=== PATIENT | male | born 1950 | race Caucasian/White ===

== ENCOUNTER → 2018-02-24 13:00 | Outpatient (CLI) | payer OTHER, SELFPAY | PROVIDERS: PCP Family Medicine | DX: Z23 Encounter for immunization (principal) | CPT/HCPCS: 90471; 90662 ==

== ENCOUNTER → 2018-04-15 09:26 | Outpatient (CLI) | payer OTHER, SELFPAY | PROVIDERS: PCP Family Medicine; Visit Provider Family Medicine | DX: N20.0 Calculus of kidney (principal); R31.29 Other microscopic hematuria | CPT/HCPCS: 87086 ==

== ENCOUNTER → 2018-04-15 09:35 | Outpatient (CLI) | payer OTHER, SELFPAY ==
[2018-04-15 10:28] LABS: Add Manual Diff / Slide Review NO; Basophils Percent Auto 0.9 % (0-2); Eosinophils Percent Auto 0.8 % (2-4); Hematocrit 47.8 % (41-53); Hemoglobin 15.8 g/dL (13.5-17.5); Lymphocytes Percent Auto 7.3 % (25-40); Mean Corpuscular Hemoglobin 30.7 PG (26-34); Mean Corpuscular Volume 92.9 fL (80-100); Neutrophils Absolute Auto 14300 /uL (3000-5900); Platelet Count 353 X10^3/uL (150-400); Red Blood Cell Count 5.15 X10^6/uL (4.5-5.9); Red Cell Distribution Width 13.4 % (11.6-14.8); White Blood Cell Count 16.8 X10^3/uL (4.5-11.0)
[2018-04-15 10:35] LABS: Hemoglobin A1C% w Est Avg Glu 7.1 % (4.0-6.0)
[2018-04-15 10:54] LABS: Alanine Aminotransferase 26 IU/L (21-72); Albumin 4.6 g/dL (3.5-5.0); Albumin Globulin Ratio 1.3 (1.0-2.8); Alkaline Phosphatase 80 U/L (38-126); Aspartate Aminotransferase 24 IU/L (17-59); BUN Creatinine Ratio 18.7 (6-22); Bilirubin Total 0.3 mg/dL (0.2-1.3); Blood Urea Nitrogen 28 mg/dL (9-20); Calcium 10.2 mg/dL (8.4-10.2); Carbon Dioxide 24 mmol/L (22-32); Chloride 104 mmol/L (98-107); Cholesterol 242 mg/dL (140-199); Estimated Glomerular Filt Rate 46.8 mL/min (>60); Globulin 3.6 g/dL (1.7-4.1); Glucose 126 mg/dL (80-110); HDL Cholesterol 54 mg/dL (40-60); HEMOLYSIS < 15 (0-50); LDL Cholesterol Calculated 159 mg/dL (<100); Sodium 145 mmol/L (137-145); Total Protein 8.2 g/dL (6.3-8.2); Triglycerides 145 mg/dL (35-150)
== END ==
PROVIDERS: PCP Family Medicine; Visit Provider Family Medicine
DX: E11.9 Type 2 diabetes mellitus without complications (principal); N20.0 Calculus of kidney; Z12.5 Encounter for screening for malignant neoplasm of prostate; R31.29 Other microscopic hematuria
CPT/HCPCS: 36415; 80053; 80061; 83036; 85025; 87086; G0103

== ENCOUNTER → 2018-04-16 10:19 | Outpatient (CLI) | payer OTHER, SELFPAY ==
--- NOTE | 2018-04-16 | DI.CT.S_ITS ---
PROCEDURE: CT KIDNEY URETER BLADDER (KUB) INDICATIONS: CALCULUS OF KIDNEY TECHNIQUE: Noncontrast 5 mm thick sections acquired from the diaphragms to the symphysis. 5 mm thick coronal and sagittal reformats were then performed. For radiation dose reduction, the following was used: automated exposure control, adjustment of mA and/or kV according to patient size. COMPARISON: [facility], CT, KIDNEY/ URETER/BLADDER, 07/28/2014, 8:34. FINDINGS: Image quality: Motion is present limiting areas of fine detail evaluation. Lung bases: Lung bases are clear. Heart size is normal. Urinary system: Right kidney demonstrates no nephrolithiasis. No obstruction. Right ureter is unremarkable. The left kidney demonstrates an unchanged superior left renal pole exophytic cyst. There are two inferior pole calcifications, the largest measuring 3 mm, slightly increased from prior exam, at which time it measured 1-2 mm. There is left perinephric stranding as well as mild left hydronephrosis and hydroureter. There is a 5 mm calcification at the left ureterovesicular junction, Hounsfield units 439. In addition, an irregular calcification is present within the bladder lumen measuring 16 mm AP by 14 mm transverse, new compared to prior exam. There is minimal periureteral stranding at the level of the proximal and mid ureter. Other solid organs: Liver is normal in size. It is noted that the hepatic dome is not completely included within the [id number]. Hepatic steatosis is present. There is an unchanged appearance of hepatic cysts. Gallbladder continues to demonstrate multiple luminal stones without wall thickening. Pancreas is normal in contours. Spleen is normal in size. No adrenal nodules. Peritoneum and bowel: Unenhanced bowel loops demonstrate normal wall thickness and caliber. No free fluid or air. Hiatal hernia is present. Diverticulosis. Nodes and vessels: No retroperitoneal or mesenteric adenopathy by size criteria. Aorta and inferior vena cava are normal in caliber. Abdominal wall: No ventral hernias. Pelvis: No free pelvic fluid. No inguinal hernias or adenopathy. Bones: No suspicious bony lesions. No vertebral body compression fractures. IMPRESSION: 1. Mildly obstructing distal left ureterovesicular calculus as above. There is periureteral stranding which could represent inflammation versus small areas of fluid possibly secondary to urine from ureteral injury secondary to recent stone passage. Recommend clinical and imaging followup as appropriate. 2. Unchanged cholelithiasis. 3. New bladder calcification. This could represent recently passed stones. However, other etiologies such as calcified mass cannot be excluded and recommend further evaluation with urology as indicated. 4. Diverticulosis. Dictated by: Karen King M.D. on 04/16/2018 at 16:43 Approved by: Karen King M.D. on 04/16/2018 at 16:48
== END ==
PROVIDERS: PCP Family Medicine; Visit Provider Family Medicine
DX: N20.0 Calculus of kidney (principal); K80.80 Other cholelithiasis without obstruction; N32.89 Other specified disorders of bladder; K57.90 Diverticulosis of intestine, part unspecified, without perforation or abscess without bleeding
CPT/HCPCS: 74176

== ENCOUNTER → 2018-05-06 09:34 | Outpatient (CLI) | payer OTHER, SELFPAY ==
[2018-05-06 10:24] LABS: Alanine Aminotransferase 23 IU/L (21-72); Albumin 4.5 g/dL (3.5-5.0); Albumin Globulin Ratio 1.4 (1.0-2.8); Alkaline Phosphatase 75 U/L (38-126); Aspartate Aminotransferase 19 IU/L (17-59); BUN Creatinine Ratio 26.4 (6-22); Bilirubin Total 0.4 mg/dL (0.2-1.3); Blood Urea Nitrogen 29 mg/dL (9-20); Calcium 9.9 mg/dL (8.4-10.2); Carbon Dioxide 29 mmol/L (22-32); Chloride 104 mmol/L (98-107); Estimated Glomerular Filt Rate > 60.0 mL/min (>60); Globulin 3.3 g/dL (1.7-4.1); Glucose 110 mg/dL (80-110); HEMOLYSIS < 15 (0-50); Potassium 4.7 mmol/L (3.4-5.1); Sodium 146 mmol/L (137-145); Total Protein 7.8 g/dL (6.3-8.2)
[2018-05-06 10:59] LABS: Creatinine Urine Random 95.5 mg/dL
[2018-05-06 11:04] LABS: Microalbumi Creatinin Ratio Ur 16.7 ug/mg CR (<30); Microalbumin Urine Random 1.6 mg/dL (0-1.6)
== END ==
PROVIDERS: PCP Student in an Organized Health Care Education/Training Program; Visit Provider Student in an Organized Health Care Education/Training Program
DX: E55.9 Vitamin D deficiency, unspecified (principal); E11.9 Type 2 diabetes mellitus without complications; Z79.899 Other long term (current) drug therapy
CPT/HCPCS: 36415; 80053; 82043; 82306; 82570

== ENCOUNTER → 2019-01-01 07:49 | Outpatient (CLI) | payer OTHER, SELFPAY ==
[2019-01-01 08:33] LABS: Hemoglobin A1C% w Est Avg Glu 6.8 % (4.0-6.0)
[2019-01-01 08:40] LABS: Alanine Aminotransferase 18 IU/L (21-72); Albumin 4.5 g/dL (3.5-5.0); Albumin Globulin Ratio 1.6 (1.0-2.8); Alkaline Phosphatase 72 U/L (38-126); Aspartate Aminotransferase 15 IU/L (17-59); Bilirubin Total 0.4 mg/dL (0.2-1.3); Bilirubin Unconjugated 0.1 mg/dL (0.0-1.1); Cholesterol 126 mg/dL (140-199); Globulin 2.9 g/dL (1.7-4.1); HDL Cholesterol 44 mg/dL (40-60); HEMOLYSIS < 15 (0-50); LDL Cholesterol Calculated 61 mg/dL (<100); Total Protein 7.4 g/dL (6.3-8.2); Triglycerides 107 mg/dL (35-150)
== END ==
PROVIDERS: PCP Student in an Organized Health Care Education/Training Program; Visit Provider Student in an Organized Health Care Education/Training Program
DX: E78.2 Mixed hyperlipidemia (principal); Z79.899 Other long term (current) drug therapy; E11.9 Type 2 diabetes mellitus without complications
CPT/HCPCS: 36415; 80061; 80076; 83036

== ENCOUNTER → 2019-03-04 12:44 | Outpatient (CLI) | payer OTHER, SELFPAY | DX: Z23 Encounter for immunization (principal) | CPT/HCPCS: 90471; 90662 ==

== ENCOUNTER → 2019-04-12 16:14 | Outpatient (CLI) | payer OTHER, SELFPAY ==
[2019-04-12 16:42] LABS: Hemoglobin A1C% w Est Avg Glu 6.5 % (4.0-6.0)
== END ==
PROVIDERS: PCP Student in an Organized Health Care Education/Training Program; Visit Provider Student in an Organized Health Care Education/Training Program
DX: E11.9 Type 2 diabetes mellitus without complications (principal)
CPT/HCPCS: 36415; 83036

== ENCOUNTER → 2019-10-28 08:16 | Outpatient (CLI) | payer MEDICARE, SELFPAY ==
[2019-10-28 09:10] LABS: Creatinine Urine Random 158.6 mg/dL; Hemoglobin A1C% w Est Avg Glu 6.9 % (4.0-6.0)
[2019-10-28 09:14] LABS: BUN Creatinine Ratio 18.5 (6-22); Blood Urea Nitrogen 22 mg/dL (9-20); Calcium 10.3 mg/dL (8.4-10.2); Carbon Dioxide 27 mmol/L (22-32); Chloride 103 mmol/L (98-107); Estimated Glomerular Filt Rate > 60.0 mL/min (>60); Glucose 131 mg/dL (80-110); HEMOLYSIS < 15 (0-50); Potassium 5.1 mmol/L (3.4-5.1); Sodium 139 mmol/L (137-145)
[2019-10-28 09:15] LABS: Microalbumin Urine Random 0.8 mg/dL (0-1.6)
== END ==
PROVIDERS: PCP Student in an Organized Health Care Education/Training Program; Referring Provider Student in an Organized Health Care Education/Training Program; Visit Provider Student in an Organized Health Care Education/Training Program
DX: E11.9 Type 2 diabetes mellitus without complications (principal); I10 Essential (primary) hypertension
CPT/HCPCS: 36415; 80048; 82043; 82570; 83036

== ENCOUNTER 2020-02-13 06:43 | Emergency (ER) | payer MEDICARE, SELFPAY ==
[2020-02-13 06:55] VITALS: BP 146/66; PULSE 62; RESP 17; TEMP 36.6; O2SAT 98; BMI 37.1
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
--- NOTE | 2020-02-13 08:01 | PC.NURSE ---
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
[2020-02-13 08:27] VITALS: BP 135/62; PULSE 60; O2SAT 98
== END 2020-02-13 08:29 | disposition home or self-care (01) ==
PROVIDERS: Emergency Provider Emergency Medicine; PCP Student in an Organized Health Care Education/Training Program
DX: M54.6 Pain in thoracic spine (principal); X58.XXXA Exposure to other specified factors, initial encounter; Y92.814 Boat as the place of occurrence of the external cause; Y99.0 Civilian activity done for income or pay
CPT/HCPCS: 72072; 99281; 99283

== ENCOUNTER → 2020-03-21 07:50 | Outpatient (CLI) | payer MEDICARE, SELFPAY | PROVIDERS: PCP Student in an Organized Health Care Education/Training Program; Referring Provider Internal Medicine; Visit Provider Internal Medicine | DX: Z23 Encounter for immunization (principal) | CPT/HCPCS: 90471; 90662 ==

== ENCOUNTER → 2020-04-18 10:34 | Outpatient (CLI) | payer MEDICARE, SELFPAY ==
[2020-04-18 11:21] LABS: COVID19 -Nasal RAPID Negative (Negative)
== END ==
PROVIDERS: PCP Student in an Organized Health Care Education/Training Program; Visit Provider Student in an Organized Health Care Education/Training Program
DX: Z03.818 Encounter for observation for suspected exposure to other biological agents ruled out (principal); Z11.59 Encounter for screening for other viral diseases
CPT/HCPCS: 87635

== ENCOUNTER → 2020-05-02 15:00 | Outpatient (CLI) | payer MEDICARE, SELFPAY ==
[2020-05-02 16:32] LABS: Prostate Specific Antigen Scrn 1.84 ng/mL (0.1-4.0)
== END ==
PROVIDERS: PCP Student in an Organized Health Care Education/Training Program; Referring Provider Student in an Organized Health Care Education/Training Program; Visit Provider Student in an Organized Health Care Education/Training Program
DX: E11.9 Type 2 diabetes mellitus without complications (principal); Z12.5 Encounter for screening for malignant neoplasm of prostate
CPT/HCPCS: 36415; 83036; G0103

== ENCOUNTER → 2020-11-13 08:45 | Outpatient (CLI) | payer MEDICARE, SELFPAY ==
[2020-11-13 10:04] LABS: Hemoglobin A1C% w Est Avg Glu 7.4 % (4.0-6.0)
== END ==
PROVIDERS: PCP Student in an Organized Health Care Education/Training Program; Referring Provider Student in an Organized Health Care Education/Training Program; Visit Provider Student in an Organized Health Care Education/Training Program
DX: E11.9 Type 2 diabetes mellitus without complications (principal)
CPT/HCPCS: 36415; 83036

== ENCOUNTER → 2021-05-23 13:04 | Outpatient (CLI) | payer MEDICARE, SELFPAY ==
[2021-05-23 14:04] LABS: Hemoglobin A1C% w Est Avg Glu 7.8 % (4.0-6.0)
[2021-05-23 17:30] LABS: Creatinine Urine Random 152.7 mg/dL
[2021-05-23 17:33] LABS: Microalbumi Creatinin Ratio Ur 16.3 ug/mg CR (<30); Microalbumin Urine Random 2.5 mg/dL (0-1.6)
== END ==
PROVIDERS: PCP Student in an Organized Health Care Education/Training Program; Referring Provider Student in an Organized Health Care Education/Training Program; Visit Provider Student in an Organized Health Care Education/Training Program
DX: E11.9 Type 2 diabetes mellitus without complications (principal); I10 Essential (primary) hypertension
CPT/HCPCS: 36415; 82043; 82570; 83036

== ENCOUNTER → 2021-08-03 12:52 | Outpatient (CLI) | payer MEDICARE, SELFPAY ==
[2021-08-03 14:18] LABS: Prostate Specific Antigen 2.05 ng/mL (0.10-4.00)
== END ==
PROVIDERS: PCP Student in an Organized Health Care Education/Training Program; Referring Provider Urology; Visit Provider Urology
DX: Z12.5 Encounter for screening for malignant neoplasm of prostate (principal)
CPT/HCPCS: 36415; 84153

== ENCOUNTER → 2021-10-04 08:07 | Outpatient (CLI) | payer MEDICARE, SELFPAY ==
--- NOTE | 2021-10-04 08:08 | DI.MRI.S_ITS ---
PROCEDURE: MR THORACIC SPINE WO CON INDICATIONS: Pain in thoracic spine TECHNIQUE: Noncontrast sagittal T1 spine echo and T2 fast spin echo, sagittal STIR, axial T1 and T2 fast spin echo through the thoracic spine. COMPARISON: [facility], XR THORACIC SPINE 3V, 02/13/2020, 7:11. FINDINGS: Image quality: Excellent. Alignment and Curvature: There is normal bony alignment. Bone Marrow: Marrow is of normal overall signal. No acute vertebral body compression fractures. Spinal Cord: Visualized spinal cord is normal in size and signal. Paraspinous Soft Tissues: No paravertebral masses. Partially visualized simple renal cysts are noted. Miscellaneous: On axial images, central canal and foramina appear widely patent at all scanned levels. Scattered multilevel minimal to mild disc bulges. Multilevel zytw-pn-[id number] disc desiccation is present. Moderate bilateral foraminal narrowing is present at T7-8, T9-10, T10-11 moderate to severe left and moderate right T11-12, moderate left T12-L1. [id number] bilateral T8-9. IMPRESSION: Multilevel disc bulges as well as foraminal narrowing as detailed above. Dictated by: Karen King M.D. on 10/04/2021 at 11:42 Approved by: Karen King M.D. on 10/04/2021 at 11:47
== END ==
PROVIDERS: PCP Student in an Organized Health Care Education/Training Program; Referring Provider Student in an Organized Health Care Education/Training Program; Visit Provider Student in an Organized Health Care Education/Training Program
DX: M51.14 Intervertebral disc disorders with radiculopathy, thoracic region (principal); M48.04 Spinal stenosis, thoracic region
CPT/HCPCS: 72146

== ENCOUNTER → 2021-10-31 08:23 | Outpatient (CLI) | payer MEDICARE, SELFPAY ==
--- NOTE | 2021-10-31 08:25 | DI.RAD.S_ITS ---
PROCEDURE: XR THORACIC SPINE 3V INDICATIONS: rib pain TECHNIQUE: 3 views of the thoracic spine were acquired. COMPARISON: [facility], CR, XR THORACIC SPINE 3V, 02/13/2020, 7:11. FINDINGS: Bones: No acute fracture or dislocation. There is 19? dextroscoliosis at the thoracolumbar junction. There are 12 pairs of ribs. There is diffuse intervertebral disc space narrowing, endplate sclerosis, and osteophytosis throughout the lumbar spine. No compression deformities. Soft tissues: No paravertebral stripe thickening. Lung volumes are low. IMPRESSION: Dextroscoliosis. Moderate degenerative change. Dictated by: Noemi Welsh M.D. on 10/31/2021 at 9:20 Approved by: Noemi Welsh M.D. on 10/31/2021 at 9:22
== END ==
PROVIDERS: PCP Student in an Organized Health Care Education/Training Program; Referring Provider Physical Medicine & Rehabilitation; Visit Provider Physical Medicine & Rehabilitation
DX: M47.24 Other spondylosis with radiculopathy, thoracic region (principal); M41.85 Other forms of scoliosis, thoracolumbar region; M54.6 Pain in thoracic spine; G89.29 Other chronic pain
CPT/HCPCS: 72072

== ENCOUNTER → 2021-12-11 13:19 | Outpatient (CLI) | payer MEDICARE, SELFPAY ==
--- NOTE | 2021-12-11 13:22 | DI.RAD.S_ITS ---
PROCEDURE: XR LUMBAR SPINE MIN 4V INDICATIONS: Chronic progressive low back pain right lower extremity symp TECHNIQUE: 5 views of the lumbar spine were acquired, including bilateral oblique views. COMPARISON: [facility], , L-SPINE 2-3 VIEWS, 08/08/2014, 10:32. FINDINGS: Bones: 5 nonrib-bearing vertebrae are present. There is normal bony alignment. Old compressions of L1 and L5, unchanged. Dextro curvature centered at L1. Lower lumbar facet arthropathy. No suspicious bony lesions. Soft tissues: Overlying bowel gas pattern is normal. No suspicious soft tissue calcifications. Oblique images: No pars defects. IMPRESSION: 1. Old compression fractures. 2. Degenerative change. 3. No evidence acute bony abnormality of the lumbar spine. Dictated by: Jefferson Grady M.D. on 12/11/2021 at 16:43 Approved by: Jefferson Grady M.D. on 12/11/2021 at 16:46
--- NOTE | 2021-12-11 13:22 | DI.RAD.S_ITS ---
PROCEDURE: XR SACRUM COCCYX MIN 2V INDICATIONS: coccyx pain TECHNIQUE: 3 views of the sacrum and coccyx acquired. COMPARISON: [facility], CT, CT KIDNEY URETER BLADDER (KUB), 04/16/2018, 10:20. FINDINGS: Bones: No fractures or dislocations. No suspicious bony lesions. Soft tissues: Visualized bowel gas pattern is normal. No suspicious soft tissue densities. IMPRESSION: No evidence acute bony abnormality of the sacrum and coccyx. If clinical suspicion and/or symptoms persist, further assessment with repeat plain films, or advanced imaging (e.g., CT, MRI, or bone scan) may be helpful for further assessment. Dictated by: Jefferson Grady M.D. on 12/11/2021 at 16:48 Approved by: Jefferson Grady M.D. on 12/11/2021 at 16:49
--- NOTE | 2021-12-11 13:22 | DI.MRI.S_ITS ---
PROCEDURE: MR LUMBAR SPINE WO CON INDICATIONS: Low back pain requiring pain TECHNIQUE: Noncontrast sagittal T1 spin echo and T2 fast echo, sagittal STIR, and T2 fast spin echo through the lumbar spine. In cases with scoliosis, additional coronal T2 fast spin echo may be performed. COMPARISON: [facility], CR, L-SPINE 2-3 VIEWS, 08/08/2014, 10:32. [facility], CR, XR LUMBAR SPINE MIN 4V, 12/11/2021, 13:15. [facility], MR, L-SPINE WITHOUT CONTRAST, 09/05/2014, 7:33. FINDINGS: Image quality: Excellent. Alignment and Curvature: There is normal bony alignment. Bone Marrow: Marrow is of normal overall signal. No acute vertebral body compression fractures. Old L1 and L5 compressions. Spinal Cord: Conus medullaris terminates at the L1-L2 level. Visualized cord demonstrates normal signal and size. Paraspinous Soft Tissues: No paravertebral masses. T12-L1: Mild facet hypertrophy, left greater than right. Left posterior lateral disc bulge. Mild narrowing of the left side of the canal. L1-L2: No canal stenosis or foraminal stenosis. L2-L3: No canal stenosis or foraminal stenosis. L3-L4: Bilateral facet hypertrophy. No significant canal stenosis. Mild bilateral foraminal stenosis. L4-L5: Disc bulge. Facet hypertrophy. No canal stenosis. Mild bilateral foraminal stenosis. L5-S1: There is disc bulge and facet hypertrophy. Quite prominent epidural lipomatosis results in severe canal stenosis. IMPRESSION: 1. Multilevel facet arthropathy. 2. Epidural lipomatosis at L5-S1 results in severe canal stenosis. 3. As before, stenosis of the left side of the canal at T12-L1. Dictated by: Jefferson Grady M.D. on 12/11/2021 at 15:43 Approved by: Jefferson Grady M.D. on 12/11/2021 at 15:49
== END ==
PROVIDERS: PCP Student in an Organized Health Care Education/Training Program; Referring Provider Physical Medicine & Rehabilitation; Visit Provider Physical Medicine & Rehabilitation
DX: M54.16 Radiculopathy, lumbar region (principal); M53.3 Sacrococcygeal disorders, not elsewhere classified; M47.816 Spondylosis without myelopathy or radiculopathy, lumbar region; E88.2 Lipomatosis, not elsewhere classified; M48.05 Spinal stenosis, thoracolumbar region; M48.56XA Collapsed vertebra, not elsewhere classified, lumbar region, initial encounter for fracture
CPT/HCPCS: 72110; 72148; 72220

== ENCOUNTER → 2021-12-19 09:23 | Outpatient (CLI) | payer MEDICARE, SELFPAY ==
[2021-12-19 11:23] LABS: HEMOLYSIS < 15 (0-50)
[2021-12-19 11:29] LABS: Blood Urea Nitrogen 37 mg/dL (9-20); Calcium 9.4 mg/dL (8.4-10.2); Carbon Dioxide 22 mmol/L (22-32); Chloride 108 mmol/L (98-107); Cholesterol 160 mg/dL (140-199); Estimated Glomerular Filt Rate 58 mL/min (>60); Glucose 103 mg/dL (80-110); HDL Cholesterol 47 mg/dL (40-60); LDL Cholesterol Calculated 98 mg/dL (<100); Potassium 5.5 mmol/L (3.4-5.1); Sodium 140 mmol/L (137-145); Triglycerides 77 mg/dL (35-150)
[2021-12-19 11:34] LABS: Creatinine Urine Random 177.7 mg/dL
[2021-12-19 11:35] LABS: Microalbumi Creatinin Ratio Ur 10.6 ug/mg CR (<30); Microalbumin Urine Random 1.9 mg/dL (0-1.6)
[2021-12-20] LABS: Prostate Specific Antigen Scrn 1.79 ng/mL (0.1-4.0)
[2021-12-20 04:41] LABS: Hemoglobin A1C% w Est Avg Glu 6.3 % (4.0-6.0)
== END ==
PROVIDERS: PCP Student in an Organized Health Care Education/Training Program; Referring Provider Student in an Organized Health Care Education/Training Program; Visit Provider Student in an Organized Health Care Education/Training Program
DX: E11.9 Type 2 diabetes mellitus without complications (principal); Z12.5 Encounter for screening for malignant neoplasm of prostate; E78.2 Mixed hyperlipidemia; I10 Essential (primary) hypertension
CPT/HCPCS: 36415; 80048; 80061; 82043; 82570; 83036; G0103

== ENCOUNTER → 2022-01-14 10:25 | Outpatient (CLI) | payer MEDICARE, SELFPAY ==
[2022-01-14 13:19] LABS: COVID19 -Nasal RAPID Negative (Negative)
== END ==
PROVIDERS: PCP Student in an Organized Health Care Education/Training Program; Visit Provider Physical Medicine & Rehabilitation
DX: Z20.822 Contact with and (suspected) exposure to COVID-19 (principal)
CPT/HCPCS: 87635; C9803

== ENCOUNTER 2022-01-15 13:33 | Outpatient (CLI) | payer MEDICARE, SELFPAY ==
[2022-01-15] VITALS (8 sets, daily range): BP systolic 110–155; BP diastolic 53–111; PULSE 80–95; RESP 12–20; TEMP 36.2; O2SAT 95–98
--- NOTE | 2022-01-15 13:37 | DI.RAD.S_ITS ---
PROCEDURE: PAIN L/S TRANSFORAMINAL INJECT INDICATIONS: SPONDYLOSIS COMPARISON: [facility], MR, MR LUMBAR SPINE WO CON, 12/11/2021, 14:10. FINDINGS: Fluoroscopic spot filming was performed to verify placement of a spinal needle at the L5-S1 level, as labeled on the films. Appropriate location of the needle tip was confirmed by injection of iodinated contrast. IMPRESSION: No significant intraprocedural abnormality. Dictated by: Randy Camarena M.D. on 01/15/2022 at 14:17 Approved by: Randy Camarena M.D. on 01/15/2022 at 14:17
[2022-01-15] MEDS: MIDAZOLAM 2 MG/2 ML VIAL IV (14:28)
[2022-01-15] MEDS: BUPIVACAINE 0.25% (PF) VIAL 2 ML INJ (14:33)
[2022-01-15] MEDS: IOPAMIDOL 15 ML VIAL 3 ML INJ (14:33)
[2022-01-15] MEDS: DEXAMETHASONE 10 MG/ML VIAL 20 MG INJ (14:34)
[2022-01-15] MEDS: BETAMETHASONE 30 MG/5 ML MDV 6 MG INJ (14:34)
--- NOTE | 2022-01-15 14:41 | P.PCN_ITS ---
Date/Time/Diagnoses Date of procedure: 01/15/22 Time of procedure: 14:42 Pre-procedure diagnosis: FORAMINAL STENOSIS WITH LE SYMPTOMS Post-procedure diagnosis: same Procedure Notes Procedure: 1. FLUOROSCOPICALLY GUIDED CONTRAST CONTROLLED TRANSFORAMINAL EPIDURAL STEROID INJECTION - RIGHT L5/S1 TFESI Indications: Amador is referred by Dr. Wilkerson for treatment of Foraminal Stenosis with Right LE Symptoms Physician: Darek Medrano Total Fluoroscopy time (seconds): 10 Total sedation minutes: 11 Complications: none Procedure in detail & Post-procedure care: FINDINGS Foraminal Nerve Root Compression secondary to disc disease and facet hypertrophy DESCRIPTION OF PROCEDURE Following review of allergy and review of potential side effects and complications, including, but not necessarily limited to, infection, allergic r eaction, local tissue breakdown, stroke, temporary or permanent nerve injury, paralysis, and possible , the patient indicated that the patient understood and agreed to proceed. An informed consent document was signed by the patient, witnessed by a nurse, and placed in the patient's chart. Additionally, other treatment options including medications, modalities, and physical therapy were reviewed with the patient. After review of previous anaesthesic history and IV conscious sedation the patient was deemed safe to proceed with today?s procedure with IV conscious sedation as ASA class II designation. Safety time-out was performed to confirm patient ID, procedure to be performed and site of procedure. IV sedation was accomplished with a combination of 2mg of Versed was administered by the RN after DO order, titrated to patient comfort during the course of the procedure while the patient remained responsive to all verbal commands In the prone position following sterile prep and drape of the lumbar region, the right L5/S1 posterior neuroforamen was identified fluoroscopically. The skin was anesthetized via a 25-gauge 1.5-inch needle with 1% lidocaine solution. At this point, a 22-gauge 5-inch spinal needle was atraumatically introduced and advanced under fluoroscopic guidance through the posterior right L5/S1 neuroforamen to approximately the anterior aspect of the canal. Depth was confirmed on lateral view. Following negative aspiration, injection of approximately 1.5cc of Isovue 200 under live fluoroscopy in the AP view confirmed excellent flow along the nerve root, into the epidural space without vascular or intrathecal uptake observed Radiological data, including multiple fluoroscopic views of the lumbosacral spine, reveal a spinal needle at the right L5/S1 posterior neuroforamen. Subsequent views show flow of contrast material flowing superiorly and inferiorly along the nerve root confirming epidural flow. Subsequently, a test dose of 1.5 cc of 1% lidocaine solution was administered and patient was observed for two minutes for signs or symptoms of complications, including abdominal pain, shortness of breath, bilateral upper or lower extremi ty weakness, nausea and vomiting, prior to steroid injection. At this point, a total of 3cc or 20mg of dexamethasone and 6mg of betamethasone was injected without incident. The procedure tolerated the procedure well without signs or symptoms of complications prior to transfer to the recovery area continued monitoring without incident. The patient was then transferred to the recovery area where they were observed for an appropriate time after the injection. The patient reported a VAS score of 7 prior to the procedure and a post- procedure VAS of 0. POST OP INSTRUCTIONS The patient was provided a Pain Log to continue to record their response to the target-specific procedure prior to follow-up visit with their referring physician. Additionally, specific post-injection care instructions and a contact number to our office were provided if concerns arise regarding possible complications associated with the procedure are suspected.
== END 2022-01-15 15:03 | disposition home or self-care (01) ==
LOC: RAD 13:37
PROVIDERS: PCP Student in an Organized Health Care Education/Training Program; Referring Provider Physical Medicine & Rehabilitation; Visit Provider Physical Medicine & Rehabilitation
DX: M48.07 Spinal stenosis, lumbosacral region (principal); M51.16 Intervertebral disc disorders with radiculopathy, lumbar region
CPT/HCPCS: 64483; 99152; J0702; J1100; J2250

== ENCOUNTER → 2022-03-08 14:10 | Outpatient (CLI) | payer MEDICARE, SELFPAY | PROVIDERS: PCP Student in an Organized Health Care Education/Training Program; Referring Provider Internal Medicine; Visit Provider Internal Medicine | DX: Z23 Encounter for immunization (principal) | CPT/HCPCS: 90471; 90662 ==

== ENCOUNTER → 2022-03-29 09:03 | Outpatient (CLI) | payer MEDICARE, SELFPAY ==
[2022-03-29 11:29] LABS: Hemoglobin A1C% w Est Avg Glu 6.3 % (4.0-6.0)
[2022-03-29 11:48] LABS: BUN Creatinine Ratio 21.1 (6-22); Blood Urea Nitrogen 28 mg/dL (9-20); Calcium 9.3 mg/dL (8.4-10.2); Carbon Dioxide 24 mmol/L (22-32); Chloride 106 mmol/L (98-107); Estimated Glomerular Filt Rate 58 mL/min (>60); Glucose 102 mg/dL (80-110); HEMOLYSIS < 15 (0-50); Potassium 4.6 mmol/L (3.4-5.1); Sodium 142 mmol/L (137-145)
[2022-03-29 12:37] LABS: Vitamin B12 659 pg/mL (239-931)
== END ==
PROVIDERS: PCP Student in an Organized Health Care Education/Training Program; Referring Provider Student in an Organized Health Care Education/Training Program; Visit Provider Student in an Organized Health Care Education/Training Program
DX: E11.9 Type 2 diabetes mellitus without complications (principal); N17.9 Acute kidney failure, unspecified; Z79.899 Other long term (current) drug therapy; E78.2 Mixed hyperlipidemia; E87.5 Hyperkalemia; I10 Essential (primary) hypertension
CPT/HCPCS: 36415; 80048; 82607; 83036

== ENCOUNTER 2022-04-16 08:31 | Outpatient (CLI) | payer MEDICARE, SELFPAY ==
[2022-04-16] VITALS (9 sets, daily range): BP systolic 89–111; BP diastolic 56–72; PULSE 61–77; RESP 10–20; TEMP 35.7; O2SAT 95–99
--- NOTE | 2022-04-16 | DI.RAD.S_ITS ---
PROCEDURE: PAIN C/T INTERLAMINAR INJECT INDICATIONS: Spinal stenosis, thoracic region COMPARISON: [facility], XA, PAIN L/S TRANSFORAMINAL INJECT, 01/15/2022, 14:33. FINDINGS: Fluoroscopic spot filming was performed to verify placement of a spinal needle at the right T10-T11 level, as labeled on the films. An appropriate location of the needle tip was confirmed by injection of iodinated contrast. IMPRESSION: Intraprocedural examination within normal limits. Dictated by: Randy Camarena M.D. on 04/16/2022 at 14:58 Approved by: Randy Camarena M.D. on 04/16/2022 at 15:00
[2022-04-16] MEDS: MIDAZOLAM 2 MG/2 ML VIAL IV (09:59)
[2022-04-16] MEDS: DEXAMETHASONE 10 MG/ML VIAL 30 MG INJ (10:00)
[2022-04-16] MEDS: BUPIVACAINE 0.25% (PF) VIAL 2 ML INJ (10:00)
[2022-04-16] MEDS: IOPAMIDOL 15 ML VIAL 3 ML INJ (10:00)
--- NOTE | 2022-04-16 10:19 | PM.PROC.IR.1 ---
Date/Time/Diagnoses Date of procedure: 04/16/22 Time of procedure: 10:19 Pre-procedure diagnosis: Thoracic stenosis with HNP Post-procedure diagnosis: same Procedure Notes Procedure: Fluoroscopic guided, contrast controlled T10/11 translaminar epidural steroid injection with conscious sedation. Indications: Amador is referred by Dr. Wilkerson for treatment of thoracic DDD/DJD with radiculopathy Physician: Darek Medrano Total Fluoroscopy time (seconds): 21 Total sedation minutes: 19 Complications: none Procedure in detail & Post-procedure care: DESCRIPTION OF PROCEDURE Fluoroscopic guided, contrast controlled T10/11 translaminar epidural steroid injection with conscious sedation. Following review of allergy review potential side effects and complications, including, but not necessarily limited to, infection, allergic reaction, local tissue breakdown, temporary as well as permanent nerve injury, stroke, paralysis and possible , the patient indicated that they understood and agreed to proceed. An informed consent document was signed by the patient, witnessed by the nurse, and placed in the patient's chart. Additionally other treatment options including modalities, medications and physical therapy were reviewed with the patient. After review of previous anaesthesic history and IV conscious sedation the patient was deemed safe to proceed with today's procedure with IV conscious sedation as ASA class II designation. Safety time-out was performed to confirm patient ID, procedure to be performed and site of procedure. IV sedation was accomplished with a combination of 2mg of Versed administered by the RN after DO order, titrated to patient comfort during the course of the procedure while the patient remained responsive to all verbal commands In the prone position, following sterile prep and drape of the thoracic region the T10/11 translaminar space was identified fluoroscopically. The skin was anesthetized via 25 gauge 1.5inch needle with 1% lidocaine solution. At this point a 22gauge epidural needle was atraumatically introduced and advanced under fluoroscopic guidance into the region of the T10/11 translaminar space depth was confirmed on lateral view. Radiographic data, including multiple fluoroscopic views of the thoracic spine, reveals spinal needle at the T10/11 translaminar space. Lateral views then showed the placement of the needle in the epidural space. Subsequent view show contrast material flowing superiorly and inferiorly in the epidural space. No vascular or intrathecal uptake is observed. At this point using loss of resistance technique with saline and the epidural space was entered. This was confirmed followed negative aspiration and injection of approximately 1.5cc of Isovue 200 showed excellent epidural flow without vascular or intrathecal uptake. At this point, 1cc of 1% lidocaine solution was admitted as a test dose and the patient was observed for an appropriate period of time without signs or symptoms of complications, including abdominal pain, shortness of breath, bilateral upper and lower extremity weakness, nausea and vomiting, prior to steroid injection. Subsequently, 3cc or 30mg of dexamethasone was then injected without incident. The patient tolerated the procedure well without signs of complications and subsequently was transferred to the recovery room for further monitoring. The patient was then transferred to the recovery area with their observed for an appropriate time after the injection. Patient reported a VAS score of 7 prior to the procedure and post-procedure VAS of 2.
== END 2022-04-16 10:35 | disposition home or self-care (01) ==
LOC: RAD 08:31
PROVIDERS: PCP Student in an Organized Health Care Education/Training Program; Referring Provider Physical Medicine & Rehabilitation; Visit Provider Physical Medicine & Rehabilitation
DX: M48.04 Spinal stenosis, thoracic region (principal); M51.14 Intervertebral disc disorders with radiculopathy, thoracic region; M47.24 Other spondylosis with radiculopathy, thoracic region
CPT/HCPCS: 62321; 99152; J1100; J2250; J3490

== ENCOUNTER 2022-04-27 08:34 | Observation (INO) | payer MEDICARE, SELFPAY ==
[2022-04-27] VITALS (24 sets, daily range): BP systolic 109–197; BP diastolic 58–106; PULSE 55–86; RESP 10–25; TEMP 35.9–36.7; O2SAT 92–99; BMI 35.5; BMI 36.0
--- NOTE | 2022-04-27 08:59 | DI.RAD.S_ITS ---
PROCEDURE: XR CHEST 1V INDICATIONS: chest pain TECHNIQUE: One view of the chest was acquired. COMPARISON: [facility], , CHEST 2 VIEW, 09/16/2014, 6:25. FINDINGS: Surgical changes and devices: None. Lungs and pleura: Lungs are clear. No pleural effusions or pneumothorax. Low lung volumes accentuate pulmonary interstitium and heart size. Elevated right hemidiaphragm Mediastinum: Mediastinal contours appear normal. Heart size is normal. Bones and chest wall: No suspicious bony lesions. Overlying soft tissues appear unremarkable. IMPRESSION: No acute cardiopulmonary findings Approved by: Wai Mohamud M.D. on 04/27/2022 at 8:33
[2022-04-27 09:12] LABS: Prothrombin Time 11.5 SECONDS (10.1-12.7)
[2022-04-27 09:14] LABS: PTT Partial Thromboplastin Tim 33 SECONDS (26-36)
[2022-04-27] MEDS: ASPIRIN 81 MG CHEW TAB 324 MG PO (09:14)
[2022-04-27 09:26] LABS: Add Manual Diff / Slide Review NO; Basophils Absolute Auto 100 /uL (0-100); Basophils Percent Auto 0.6 % (0-2); Eosinophils Absolute Auto 400 /uL (0-450); Eosinophils Percent Auto 4.7 % (2-4); Hematocrit 40.2 % (41-53); Hemoglobin 13.4 g/dL (13.5-17.5); Lymphocytes Absolute Auto 1600 /uL (1100-4500); Lymphocytes Percent Auto 19.8 % (25-40); Mean Corpuscular HGB Conc 33.3 % (30-36); Mean Corpuscular Volume 93.2 fL (80-100); Monocytes Absolute Auto 700 /uL (0-900); Monocytes Percent Auto 8.7 % (3-14); Neutrophils Absolute Auto 5300 /uL (1500-7000); Neutrophils Percent Auto 66.2 % (50-75); Platelet Count 310 X10^3/uL (150-400); Red Blood Cell Count 4.32 X10^6/uL (4.5-5.9); Red Cell Distribution Width 13.7 % (11.6-14.8)
[2022-04-27 09:27] LABS: Alanine Aminotransferase 26 IU/L (<50); Albumin Globulin Ratio 1.2 (1.0-2.8); Alkaline Phosphatase 83 U/L (38-126); Aspartate Aminotransferase 19 IU/L (17-59); BUN Creatinine Ratio 19.7 (6-22); Bilirubin Total 0.3 mg/dL (0.2-1.3); Blood Urea Nitrogen 25 mg/dL (9-20); Calcium 10.4 mg/dL (8.4-10.2); Carbon Dioxide 25 mmol/L (22-32); Chloride 107 mmol/L (98-107); Creatine Kinase 48 U/L (55-170); Estimated Glomerular Filt Rate > 60 mL/min (>60); Globulin 3.3 g/dL (1.7-4.1); Glucose 146 mg/dL (80-110); HEMOLYSIS < 15 (0-50); Lipase 64 U/L (23-300); Magnesium 1.7 mg/dL (1.6-2.3); Sodium 142 mmol/L (137-145); Total Protein 7.3 g/dL (6.3-8.2)
[2022-04-27 09:38] LABS: Troponin I < 0.012 ng/mL (0.01-0.034)
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
[2022-04-27 11:41] LABS: Troponin I 0.055 ng/mL (0.01-0.034)
[2022-04-27] MEDS: NITROGLYCERIN 0.4 MG SL TAB SL ×3 (11:53→12:27)
[2022-04-27 12:56] LABS: COVID19 -Nasal RAPID Negative (Negative)
[2022-04-27] MEDS: ONDANSETRON 4 MG/2 ML INJ IV (13:19)
[2022-04-27] MEDS: MORPHINE 4 MG/ML INJ IV (13:19)
[2022-04-27 14:01] LABS: Troponin I < 0.012 ng/mL (0.01-0.034)
--- NOTE | 2022-04-27 17:45 | DI.ECHO.S_ITS ---
[facility]---------+ [facility] +---------+ : : [address] : : : : [id number] : : : : Phone: [phone] Echocardiogram Report + + :Name: YULIA HIGH Study Date: 04/28/2022 Height: 66 in : :[facility] ReadingLocation: Weight: 223 lb : : Gender: Male BSA: 2.1 m2 : :: 1950 Age: 72 yrs BP: 115/65 mmHg: :Reason For Study: CHEST PAIN : :Ordering Physician: COLLEEN, : :ZABRINA Performed By: Danita Kiran : :Referring: ZABRINA MACIAS : + + Interpretation Summary The ejection fraction is estimated to be 60-65%. Diastolic parameters suggest probable normal left ventricular diastolic function and normal filling pressures. The right ventricle is mild to moderately dilated. The right ventricular systolic function is normal. The left atrium is mildly dilated. There is mild tricuspid regurgitation. The right ventricular systolic pressure is estimated to be at least 30 mmHg based on an estimated right atrial pressure of 3 mm Hg. Procedure: A two-dimensional transthoracic echocardiogram with color flow and Doppler was performed. The study quality was technically adequate. A contrast injection of Definity was performed to improve assessment of LV function. The patient was in sinus rhythm with heart rates between 56-73 bpm during the exam. Left Ventricle: The left ventricle is normal in size and wall thickness. The ejection fraction is estimated to be 60-65%. Diastolic parameters suggest probable normal left ventricular diastolic function and normal filling pressures. Right Ventricle: The right ventricle is mild to moderately dilated. The right ventricular systolic function is normal. Atria: The left atrium is mildly dilated. Right atrial size is normal. There is no Doppler evidence for an interatrial shunt. Mitral Valve: The mitral valve is normal in structure and function. There is trace mitral regurgitation. Aortic Valve: The aortic valve opens well. There is no aortic valve stenosis. No aortic regurgitation is present. Tricuspid Valve: The tricuspid valve is normal in structure and function. There is mild tricuspid regurgitation. The right ventricular systolic pressure is estimated to be at least 30 mmHg based on an estimated right atrial pressure of 3 mm Hg. Pulmonic Valve: The pulmonic valve is not well visualized. There is no pulmonic valvular regurgitation. Great Vessels: The aortic root is normal size. The dimensions of the ascending aorta are normal. The IVC is of normal diameter and collapses greater than 50% with a sniff. This suggests a low right atrial pressure of 3 mm Hg. Pericardium/ Pleura There is no pericardial effusion. There is no pleural effusion. MMode/2D Measurements & Calculations LVIDd: 4.9 cm LVOT diam: 2.5 cm LVIDs: 3.6 cm Ao root diam: 3.5 cm FS: 26.3 % asc Aorta Diam: 3.1 cm IVSd: 0.93 cm Ao Arch Diam (Prox Trans): 3.2 cm LVPWd: 1.1 cm LV patel. diameter/BSA (cm/m^2): 2.3 LV sys. diameter/BSA (cm/m^2): 1.7 LA A2 area: 21.5 cm2 RA long axis: 5.1 cm LA A4 area: 21.3 cm2 RA area: 16.5 cm2 LA length (vol): 5.7 cm RA vol: 45.4 ml LA vol: 68.7 ml RA : 21.7 ml/m2 LA vol index: 32.8 ml/m2 IVC diam: 2.0 cm RVD1 (basal): 4.7 cm RVD2 (mid): 4.7 cm TAPSE: 2.0 cm Doppler Measurements & Calculations Ao V2 max: 108.7 cm/sec LVOT Max Matt: 101.9 cm/sec Ao V2 mean: 83.1 cm/sec LV V1 max P.2 mmHg Ao max P.7 mmHg LV V1 VTI: 22.7 cm Ao mean P.9 mmHg JUSTINA(I,D): 4.6 cm2 Ao V2 VTI: 24.4 cm JUSTINA(V,D): 4.6 cm2 sev ratio: 0.93 JUSTINA indexed to BSA (cm^2/m^2): 2.2 MV E max matt: 77.5 cm/sec TR max matt: 259.9 cm/sec MV A max matt: 64.2 cm/sec TR max P.0 mmHg MV E/A: 1.2 PA V2 max: 99.3 cm/sec Med Peak E' Matt: 5.9 cm/sec PA V2 mean: 67.8 cm/sec E/E' med: 13.1 PA mean P.0 mmHg Lat Peak E' Matt: 8.7 cm/sec PA pr(Accel): 49.9 mmHg E/E' lat: 8.9 E/e' average: 11.0 MV dec time: 0.19 sec SV(LVOT): 111.1 ml Reading Physician:06:09 PM
[2022-04-27] MEDS: GABAPENTIN 600 MG TABLET PO (18:12)
[2022-04-27] MEDS: ACETAMINOPHEN 325 MG TABLET 650 MG PO (18:13)
[2022-04-27] MEDS: MORPHINE 2 MG/ML INJ IV ×2 (18:14→20:20)
[2022-04-27 20:44] LABS: Troponin I < 0.012 ng/mL (0.01-0.034)
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
[2022-04-28] VITALS (8 sets, daily range): BP systolic 115–141; BP diastolic 65–86; PULSE 64–81; RESP 14–18; TEMP 35.8–36.2; O2SAT 95–98
[2022-04-28] MEDS: GABAPENTIN 600 MG TABLET PO ×3 (01:23→18:33)
[2022-04-28] MEDS: MORPHINE 2 MG/ML INJ IV ×3 (08:05→18:34)
[2022-04-28] MEDS: ENALAPRIL 20 MG TABLET PO (08:06)
[2022-04-28] MEDS: ASPIRIN EC 81 MG TABLET PO (08:06)
[2022-04-28] MEDS: TAMSULOSIN 0.4 MG CAPSULE PO (08:09)
[2022-04-28] MEDS: ACETAMINOPHEN 325 MG TABLET 650 MG PO ×2 (08:09→14:22)
[2022-04-28 09:52] LABS: Cholesterol 176 mg/dL (140-199); HDL Cholesterol 39 mg/dL (40-60); LDL Cholesterol Calculated 99 mg/dL (<100); Triglycerides 191 mg/dL (35-150)
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
== END 2022-04-28 18:31 | disposition home or self-care (01) ==
LOC: ED 14:24 → AC 14:25
PROVIDERS: Internal Medicine; Admitting Provider Family Medicine; Emergency Provider Emergency Medicine; PCP Student in an Organized Health Care Education/Training Program; Referring Provider Emergency Medicine; Visit Provider Family Medicine
DX: I10 Essential (primary) hypertension (principal); E78.5 Hyperlipidemia, unspecified; E11.9 Type 2 diabetes mellitus without complications; Z79.84 Long term (current) use of oral hypoglycemic drugs; G89.29 Other chronic pain; M54.9 Dorsalgia, unspecified; D72.10 Eosinophilia, unspecified; R07.89 Other chest pain; Z20.822 Contact with and (suspected) exposure to COVID-19
CPT/HCPCS: 36415; 71045; 80053; 80061; 82550; 83690; 83735; 84484; 85025; 85610; 85730; 87635; 93005; 93010; 93306; 96374; 96375; 96376; 99284; C9803; G0378; J2270; J2405

== ENCOUNTER → 2022-05-21 10:07 | Outpatient (CLI) | payer MEDICARE, SELFPAY ==
[2022-04-27 14:32] VITALS: BMI 36.0
[2022-05-21 10:50] LABS: COVID19 -Nasal RAPID Negative (Negative)
--- NOTE | 2022-05-22 18:38 | DI.NM.S_ITS ---
DATE OF SERVICE: PROCEDURE: Pharmacological perfusion study. INDICATION: Chest pain with underlying diabetes mellitus, hypertension, and hyperlipidemia. RADIOPHARMACEUTICAL: 26.7 mCi technetium-99m Myoview IV was injected at stress and 25.3 mCi technetium-99m Myoview IV was injected at rest. CARDIAC STRESS: The patient underwent IV Lexiscan perfusion study under the supervision of an attending staff using standard IV Lexiscan as per protocol. Baseline rhythm was sinus. During Lexiscan, no significant ischemic changes or arrhythmias seen. Baseline blood pressure 132/84 and heart rate 71 beats per minute. The patient remained hemodynamically stable. Minimal dyspnea. No chest discomfort. No reversal agent needed. RAW DATA: Increased subdiaphragmatic activity seen. The patient's weight is 222 pounds. GATED STUDY: Resting LV ejection fraction 66 percent and stress LV ejection fraction is 72 percent without any obvious wall motion abnormalities. Resting end-diastolic volume 113 mL. TID ratio 1.23, which is within normal limits. Lung/heart ratio 0.41 which is within normal limits. MYOCARDIAL PERFUSION SCAN: Stress supine, resting supine, and stress prone images were compared to each other. Stress supine and resting supine images revealed normal myocardial perfusion. On the stress prone images, there was distal anterior septal defect. However, stress supine images revealed normal myocardial perfusion. Summed stress score and summed rest score is zero. CONCLUSION: I will call this study a normal myocardial perfusion study as stress supine and resting supine images revealed normal myocardial perfusion. Summed stress score and summed rest score is zero. Preserved left ventricular function without any regional wall motion abnormalities. Overall low-risk myocardial perfusion study. Amador Dave - ANA/angela/ALEK doc#: [id number]/job#: [id number] dd: 05/22/2022 17:03:00 dt: 05/22/2022 18:07:00 DICTATING MD/COPIES TO: Sharlene Mccormack MD COPIES MNE: MÓNICA;
== END ==
PROVIDERS: PCP Student in an Organized Health Care Education/Training Program; Referring Provider Student in an Organized Health Care Education/Training Program; Visit Provider Student in an Organized Health Care Education/Training Program
DX: I20.8 Other forms of angina pectoris (principal); E11.9 Type 2 diabetes mellitus without complications; I10 Essential (primary) hypertension; E78.5 Hyperlipidemia, unspecified; Z20.822 Contact with and (suspected) exposure to COVID-19
CPT/HCPCS: 78452; 87635; 93017; A9502; J2785

== ENCOUNTER → 2022-07-17 16:43 | Outpatient (CLI) | payer MEDICARE, SELFPAY ==
[2022-04-27 14:32] VITALS: BMI 36.0
[2022-07-17 17:45] LABS: Hemoglobin A1C% w Est Avg Glu 6.7 % (4.0-6.0)
[2022-07-17 18:23] LABS: BUN Creatinine Ratio 18.9 (6-22); Blood Urea Nitrogen 24 mg/dL (9-20); Calcium 9.6 mg/dL (8.4-10.2); Carbon Dioxide 24 mmol/L (22-32); Chloride 106 mmol/L (98-107); Estimated Glomerular Filt Rate > 60 mL/min (>60); Glucose 95 mg/dL (80-110); HEMOLYSIS < 15 (0-50); Potassium 5.2 mmol/L (3.4-5.1); Sodium 142 mmol/L (137-145)
[2022-07-17 18:44] LABS: Prostate Specific Antigen 2.24 ng/mL (0.10-4.00)
[2022-07-17 18:45] LABS: Appearance Urine UA CLEAR; Bilirubin Urine UA NEGATIVE (NEGATIVE); Color Urine UA YELLOW; Glucose Urine UA NEGATIVE (Negative); Ketones Urine UA TRACE (NEGATIVE); Leukocyte Esterase Urine UA NEGATIVE (NEGATIVE); Nitrite Urine UA NEGATIVE (Negative); Occult Blood Urine UA NEGATIVE (Negative); Protein Urine UA NEGATIVE (Negative); Specific Gravity Urine UA >=1.030 (1.000-1.035); Urobilinogen Urine UA 0.2 E.U./dL (0.2)
[2022-07-17 19:03] LABS: Bacteria Urine None Seen; Culture Indicated Urine Cult Not Indicated; Hyaline Casts Urine 1-5/LPF; RBC Urine None Seen (0-5/HPF); Squamous Epithelial Cell Urine None Seen (0-5/HPF); WBC Urine 1-5/HPF (0-5/HPF)
[2022-07-17 19:04] LABS: Creatinine Urine Random 163.8 mg/dL
[2022-07-17 19:06] LABS: Microalbumi Creatinin Ratio Ur 11.5 ug/mg CR (<30); Microalbumin Urine Random 1.9 mg/dL (0-1.6)
== END ==
PROVIDERS: PCP Student in an Organized Health Care Education/Training Program; Referring Provider Urology; Visit Provider Urology
DX: E11.9 Type 2 diabetes mellitus without complications (principal); R31.9 Hematuria, unspecified; Z12.5 Encounter for screening for malignant neoplasm of prostate; N18.31 Chronic kidney disease, stage 3a; E87.5 Hyperkalemia; I10 Essential (primary) hypertension; N17.9 Acute kidney failure, unspecified
CPT/HCPCS: 36415; 80048; 81001; 82043; 82570; 83036; 84153

== ENCOUNTER → 2022-12-02 10:57 | Outpatient (CLI) | payer MEDICARE, SELFPAY ==
[2022-04-27 14:32] VITALS: BMI 36.0
[2022-12-02 12:56] LABS: Add Manual Diff / Slide Review NO; Basophils Absolute Auto 100 /uL (0-100); Basophils Percent Auto 0.8 % (0-2); Eosinophils Absolute Auto 400 /uL (0-450); Eosinophils Percent Auto 4.7 % (2-4); Hematocrit 37.2 % (41-53); Hemoglobin 12.4 g/dL (13.5-17.5); Lymphocytes Absolute Auto 1600 /uL (1100-4500); Lymphocytes Percent Auto 18.5 % (25-40); Mean Corpuscular HGB Conc 33.2 % (30-36); Mean Corpuscular Hemoglobin 31.1 PG (26-34); Mean Corpuscular Volume 93.8 fL (80-100); Monocytes Absolute Auto 500 /uL (0-900); Monocytes Percent Auto 5.9 % (3-14); Neutrophils Absolute Auto 6000 /uL (1500-7000); Neutrophils Percent Auto 70.1 % (50-75); Platelet Count 295 X10^3/uL (150-400); Red Blood Cell Count 3.97 X10^6/uL (4.5-5.9); Red Cell Distribution Width 13.4 % (11.6-14.8); White Blood Cell Count 8.6 X10^3/uL (4.5-11.0)
[2022-12-02 13:23] LABS: Alanine Aminotransferase 22 IU/L (<50); Albumin 4.4 g/dL (3.5-5.0); Albumin Globulin Ratio 1.3 (1.0-2.8); Alkaline Phosphatase 76 U/L (38-126); Aspartate Aminotransferase 19 IU/L (17-59); BUN Creatinine Ratio 18.2 (6-22); Bilirubin Total 0.4 mg/dL (0.2-1.3); Blood Urea Nitrogen 27 mg/dL (9-20); Calcium 9.7 mg/dL (8.4-10.2); Carbon Dioxide 23 mmol/L (22-32); Chloride 107 mmol/L (98-107); Estimated Glomerular Filt Rate 51 mL/min (>60); Globulin 3.3 g/dL (1.7-4.1); Glucose 107 mg/dL (80-110); HEMOLYSIS < 15 (0-50); Potassium 4.8 mmol/L (3.4-5.1); Sodium 141 mmol/L (137-145); Total Protein 7.7 g/dL (6.3-8.2)
[2022-12-02 13:51] LABS: Thyroid Stimulating Hormone 1.49 uIU/mL (0.47-4.68)
== END ==
PROVIDERS: PCP Pediatrics; Referring Provider Pediatrics; Visit Provider Pediatrics
DX: E78.2 Mixed hyperlipidemia (principal); I10 Essential (primary) hypertension; N18.31 Chronic kidney disease, stage 3a
CPT/HCPCS: 36415; 80053; 84443; 85025

== ENCOUNTER → 2023-01-31 08:21 | Outpatient (CLI) | payer MEDICARE, SELFPAY ==
[2022-04-27 14:32] VITALS: BMI 36.0
[2023-01-31 09:03] LABS: Hematocrit 36.7 % (41-53); Hemoglobin 12.4 g/dL (13.5-17.5)
[2023-01-31 09:48] LABS: BUN Creatinine Ratio 13.2 (6-22); Blood Urea Nitrogen 19 mg/dL (9-20); Calcium 9.2 mg/dL (8.4-10.2); Carbon Dioxide 22 mmol/L (22-32); Chloride 108 mmol/L (98-107); Estimated Glomerular Filt Rate 52 mL/min (>60); Glucose 130 mg/dL (80-110); HEMOLYSIS < 15 (0-50); Potassium 5.3 mmol/L (3.4-5.1); Sodium 139 mmol/L (137-145)
[2023-01-31 10:07] LABS: Creatinine Urine Random 133.4 mg/dL; Protein (Total) Urine Random 6 mg/dL (0-12); Protein Creatinine Ratio Urine 0.04 GRAM/24H
== END ==
PROVIDERS: PCP Pediatrics; Referring Provider Student in an Organized Health Care Education/Training Program; Visit Provider Student in an Organized Health Care Education/Training Program
DX: N05.9 Unspecified nephritic syndrome with unspecified morphologic changes (principal); D64.9 Anemia, unspecified; R80.9 Proteinuria, unspecified
CPT/HCPCS: 36415; 80048; 82570; 84156; 85014; 85018

== ENCOUNTER → 2023-02-05 08:37 | Outpatient (CLI) | payer MEDICARE, SELFPAY ==
[2022-04-27 14:32] VITALS: BMI 36.0
[2023-02-05 10:20] LABS: BUN Creatinine Ratio 14.6 (6-22); Blood Urea Nitrogen 21 mg/dL (9-20); Calcium 9.2 mg/dL (8.4-10.2); Carbon Dioxide 25 mmol/L (22-32); Chloride 107 mmol/L (98-107); Estimated Glomerular Filt Rate 52 mL/min (>60); Glucose 114 mg/dL (80-110); HEMOLYSIS < 15 (0-50); Potassium 4.8 mmol/L (3.4-5.1); Sodium 140 mmol/L (137-145)
== END ==
PROVIDERS: PCP Pediatrics; Referring Provider Student in an Organized Health Care Education/Training Program; Visit Provider Student in an Organized Health Care Education/Training Program
DX: N05.9 Unspecified nephritic syndrome with unspecified morphologic changes (principal)
CPT/HCPCS: 36415; 80048

== ENCOUNTER → 2023-03-11 14:27 | Outpatient (CLI) | payer MEDICARE, SELFPAY ==
[2022-04-27 14:32] VITALS: BMI 36.0
--- NOTE | 2023-03-11 | DI.US.S_ITS ---
PROCEDURE: US RENAL COMPLETE INDICATIONS: CHRONIC KIDNET DISEASE, STAGE 3A TECHNIQUE: Real-time scanning was performed of the kidneys and bladder, with image documentation. Technically challenging exam secondary to patient body habitus and bowel gas. COMPARISON: [facility], CT, CT KIDNEY URETER BLADDER (KUB), 04/16/2018, 10:20. FINDINGS: Kidneys: Kidneys are normal in size. Right kidney measures 9.7 cm long; left kidney measures 11.4 cm long. Right renal cortical thickness is 1.4 cm; left renal cortical thickness is 1.7 cm. Renal cortical echotexture is normal. No hydronephrosis or nephrolithiasis. Solid lesion in the right anterior interpolar region measuring 2.4 x 2.2 x 1.7 cm with mild vascularity. Multiple bilateral anechoic simple cysts, the largest of which measures 0.8 x 0.7 x 0.7 cm on the right and 3.5 x 3 x 3.1 cm on the left. Bladder: Pre-void bladder volume is 74 mL. Patient unable to void to calculate postvoid volume. Pre-void images demonstrate no intraluminal masses or stones. On pre-void images, bilateral ureteral jets are noted with color Doppler interrogation. (Of note, ureteral jets may not be detectable in up to 25% of cases due to insufficient differences in specific gravity between ureteral and bladder urine). Miscellaneous: No free pelvic fluid. Incidental note of an echogenic liver. Multiple gallstones with no wall thickening or pericholecystic fluid. IMPRESSION: 1. Hypoechoic mass with vascularity in the right anterior interpolar region measuring 2.4 x 2.2 x 1.7 cm not well seen on prior CT dated April 16, 2018, less likely parenchymal lobulation. -Recommend CT or MRI (renal mass protocol) for further characterization. 2. No hydronephrosis or nephrolithiasis bilaterally. 3. Liver is diffusely echogenic suggestive of steatosis/parenchymal disease. Correlate with LFTs. 4. Cholelithiasis without acute cholecystitis. Dictated by: Lily Claudio M.D. on 03/11/2023 at 16:40 Approved by: Lily Claudio M.D. on 03/11/2023 at 16:49
[2023-03-11 15:32] LABS: Hematocrit 36.2 % (41-53); Hemoglobin 12.2 g/dL (13.5-17.5)
[2023-03-11 15:54] LABS: BUN Creatinine Ratio 11.2 (6-22); Blood Urea Nitrogen 18 mg/dL (9-20); Calcium 9.8 mg/dL (8.4-10.2); Carbon Dioxide 24 mmol/L (22-32); Chloride 104 mmol/L (98-107); Estimated Glomerular Filt Rate 45 mL/min (>60); Glucose 96 mg/dL (80-110); HEMOLYSIS < 15 (0-50); Phosphorous 3.4 mg/dL (2.3-3.7); Potassium 4.4 mmol/L (3.4-5.1); Sodium 139 mmol/L (137-145)
[2023-03-11 16:20] LABS: Appearance Urine UA CLEAR; Bilirubin Urine UA NEGATIVE (NEGATIVE); Color Urine UA YELLOW; Glucose Urine UA NEGATIVE (Negative); Ketones Urine UA NEGATIVE (NEGATIVE); Leukocyte Esterase Urine UA NEGATIVE (NEGATIVE); Nitrite Urine UA NEGATIVE (Negative); Occult Blood Urine UA NEGATIVE (Negative); Protein Urine UA NEGATIVE (Negative); Specific Gravity Urine UA 1.025 (1.000-1.035); Urobilinogen Urine UA 0.2 E.U./dL (0.2); pH Urine UA 5.5 (4.5-8.0)
[2023-03-11 16:40] LABS: Bacteria Urine None Seen; Culture Indicated Urine Cult Not Indicated; RBC Urine None Seen (0-5/HPF); Squamous Epithelial Cell Urine None Seen (0-5/HPF); WBC Urine None Seen (0-5/HPF)
[2023-03-13 07:07] LABS: Parathyroid Hormone Int 41 pg/mL (15-65)
== END ==
PROVIDERS: PCP Pediatrics; Referring Provider Student in an Organized Health Care Education/Training Program; Visit Provider Student in an Organized Health Care Education/Training Program
DX: N18.31 Chronic kidney disease, stage 3a (principal); N05.9 Unspecified nephritic syndrome with unspecified morphologic changes; D64.9 Anemia, unspecified; N28.9 Disorder of kidney and ureter, unspecified; E83.30 Disorder of phosphorus metabolism, unspecified; N25.81 Secondary hyperparathyroidism of renal origin; N30.00 Acute cystitis without hematuria; K80.20 Calculus of gallbladder without cholecystitis without obstruction
CPT/HCPCS: 36415; 76770; 80048; 81001; 83970; 84100; 85014; 85018

== ENCOUNTER → 2023-03-21 18:32 | Outpatient (CLI) | payer MEDICARE, SELFPAY ==
[2022-04-27 14:32] VITALS: BMI 36.0
--- NOTE | 2023-03-21 | DI.MRI.S_ITS ---
PROCEDURE: MR ABDOMEN WO CON INDICATIONS: RENAL MASS TECHNIQUE: Coronal HASTE, axial 2-D FLASH in- and [id number] from the hepatic dome to the iliac crests. Coronal T2 space, T1 coronal with fat sat, restricted diffusion sequences. COMPARISON: [facility], US, US RENAL COMPLETE, 03/11/2023, 14:53. [facility], CT, CT KIDNEY URETER BLADDER (KUB), 04/16/2018, 10:20. FINDINGS: Image quality: Excellent. Evaluation is mildly limited without IV contrast. Other solid organs: Liver is normal in overall size. Benign T2 hyperintense cyst in the left liver. Gallbladder is not significantly distended. Multiple gallstones. Biliary system is non dilated. Pancreas is normal in morphology. Spleen is normal in size. Both kidneys are normal in size, without hydronephrosis. Several T2 hyperintense renal cysts bilaterally. Largest on the right measuring 1 cm; and on the left 3.3 cm. No intrinsic T1 hyperintense cysts. No restricted diffusion. Nodes and vessels: No retroperitoneal or mesenteric adenopathy by size criteria. Aorta and inferior vena cava are normal in size. Bowel and peritoneum: Unenhanced bowel loops are normal in caliber. No free fluid. Lung bases: No basal pleural effusions. Asymmetric elevation of the right hemidiaphragm Heart size is normal. Bones and soft tissues: No ventral hernias. Bone marrow is of normal overall signal. IMPRESSION: 1. No solid renal mass identified. No suspicious restricted diffusion. A few small T2 hyperintense cysts. 2. No hydronephrosis. 3. Multiple gallstones. Dictated by: Luis Ro M.D. on 03/22/2023 at 9:21 Approved by: Luis Ro M.D. on 03/22/2023 at 9:32
== END ==
PROVIDERS: PCP Pediatrics; Referring Provider Student in an Organized Health Care Education/Training Program; Visit Provider Student in an Organized Health Care Education/Training Program
DX: N28.89 Other specified disorders of kidney and ureter (principal); K80.20 Calculus of gallbladder without cholecystitis without obstruction
CPT/HCPCS: 74181

== ENCOUNTER 2023-03-26 12:49 | Day surgery (SDC) | payer MEDICARE, SELFPAY ==
[2022-04-27 14:32] VITALS: BMI 36.0
--- NOTE | 2023-03-26 | PATH_ITS ---
[facility] Accession Number: [id number] No. of containers..02 Tissue . 01 Material submitted: . PART A: gastrointestinal site - ANTRUM PART B: esophagus, E-G Junction - GE JUNCTION . 01 Diagnosis: A. Gastric Antrum, Biopsy: Gastric antral mucosa with no diagnostic abnormality. No evidence of Helicobacter organisms on H/E stain. Negative for intestinal metaplasia. Negative for dysplasia or malignancy. . B. Gastroesophageal Junction, Biopsy: Proximal gastric-type mucosa with no diagnostic abnormality. Negative for intestinal metaplasia. Negative for dysplasia and malignancy. . MRV 03/28/2023 1232 Local . 01 Electronically signed: . Be Sanders MD, PhD, Pathologist NPI- [id number] . 01 Gross description: . Part A: ANTRUM: Received in formalin is 1 fragment(s) of molina, soft tissue measuring 0.5 x 0.3 x 0.2 cm submitted entirely in 1 cassette(s) Part B: GE JUNCTION: Received in formalin is 2 fragment(s) of molina, soft tissue measuring 0.5 x 0.3 x 0.2 cm to 0.3 x 0.3 x 0.2 cm submitted entirely in 1 cassette(s) /AAY 03/27/2023 0354 Local . 01 Pathologist provided ICD-10: R10.13, K21.9 . 01 CPT . 122639, 899180 Specimen Comment: A courtesy copy of this report has been sent to [phone] Performed at: 01 [facility] [address] [place] [address] [address] [facility], [place], [place] [id number] MD Rickey Arce MD Phone: [phone]
[2023-03-26 13:12] VITALS: BMI 33.0
[2023-03-26 13:25] VITALS: BP 133/77; PULSE 65; RESP 16; TEMP 36.1; O2SAT 98
[2023-03-26] MEDS: SODIUM CHLORIDE 0.9% 1,000 ML 84 ML IV (13:39)
--- NOTE | 2023-03-26 13:40 | P.OP.PRE_ITS ---
Pre-operative Note COVID-19 COVID-19 status: Not tested Interval Note History & Physical reviewed/Exam performed by Physician: Yes Changes to H&P: No H&P completed within 30 days and has changed as indicated here:: Recent MRI nona ws no renal mass, just gallstones ASA Class (for procedural sedation): III
--- NOTE | 2023-03-26 13:40 | SUR.PREOP ---
Dr. Chung notified patient on renal diet due to kidney issues. A small amount of LR was infused. VVO to change IV to 0.9%NS. IV fluids changed.
--- NOTE | 2023-03-26 14:19 | PM.OP.EGD ---
Operative Date/Time/Diagnoses Date of procedure: 03/26/23 Time of procedure: 14:19 Pre-op diagnosis: Dyspepsia Post-op diagnosis: same Procedure & Clinicians Study performed: Esophagogastroduodenoscopy Same procedure as scheduled: Yes Surgeon: Joseph Mondragon Procedure Notes Procedure in detail: Surgeon: Joseph Mondragon MD Anesthesia: Jolly Raygoza DO A timeout was performed. A bite blocked was placed. The patient was positioned in the left lateral decubitus position. Anesthesia was administered. The endoscope was inserted through the bite block and passed through the esophagus and stomach and into the duodenum. The duodenal mucosa appeared normal. The scope was withdrawn into the duodenal bulb and no abnormalities were seen. The scope was withdrawn into the stomach. The antrum appeared normal. Random biopsies were performed with cold forceps. The rest of the stomach was normal. The scope was retroflexed and no hiatal hernia was seen. The scope was withdrawn into the esophagus and subtle irregularity was noted of the mucosa just distal to the Z-line and biopsies were taken with the cold forceps. The remainder of the esophagus was normal. The scope was withdrawn. The patient was awakened and brought to recovery. Sedation time: 5 minutes Findings: Slight irregularity just the Z-line Specimens: Antrum and GE junction Post-procedure Disposition: PACU
[2023-03-26 14:24] VITALS: BP 123/69; PULSE 97; RESP 10; TEMP 36.3; O2SAT 94
[2023-03-26 14:29] VITALS: BP 122/56; PULSE 82; RESP 13; O2SAT 95
[2023-03-26 14:34] VITALS: BP 126/60; PULSE 81; RESP 15; O2SAT 93
[2023-03-26 14:39] VITALS: BP 127/61; PULSE 65; RESP 15; TEMP 36.1; O2SAT 98
[2023-03-26 14:42] VITALS: BP 137/72; PULSE 66; RESP 15; TEMP 36.1; O2SAT 98
== END 2023-03-26 14:58 | disposition home or self-care (01) ==
PROVIDERS: PCP Pediatrics; Referring Provider Surgery; Visit Provider Surgery
PROC: 0DJ08ZZ Inspection of Upper Intestinal Tract, Via Natural or Artificial Opening Endoscopic (ICD-10-PCS; CPT 43235; principal; 2023-03-26 14:00)
DX: R10.13 Epigastric pain (principal)
CPT/HCPCS: 43239; J2704

== ENCOUNTER 2023-04-01 09:01 | Day surgery (SDC) | payer MEDICARE, SELFPAY ==
[2022-04-27 14:32] VITALS: BMI 36.0
[2023-03-27 10:24] VITALS: BMI 36.1
[2023-04-01] VITALS (13 sets, daily range): BP systolic 123–169; BP diastolic 69–90; PULSE 55–92; RESP 9–18; TEMP 35.8–36.3; O2SAT 90–99
--- NOTE | 2023-04-01 | PATH_ITS ---
[facility] Accession Number: [id number] No. of containers..01 Tissue . 01 Material submitted: . gallbladder - GALLBLADDER . 01 Diagnosis: Gallbladder, Cholecystectomy: Mild chronic calculous cholecystitis. Negative for dysplasia and malignancy. MRV 04/08/2023 1335 Local . 01 Electronically signed: . Klarissa Champion MD, Pathologist NPI- [id number] . 01 Gross description: . The specimen is received in formalin labeled with the patient's name, , and gallbladder, consists of an intact gallbladder measuring 8.0 x 4.2 x 3.0 cm with an unremarkable external surface. The cystic duct margin is inked blue, and no pericystic lymph node is identified. The lumen contains green to brown faceted calculi measuring up 2.5 cm in greatest dimension admixed with green mucoid bile. The mucosa is green to pale molina and diffusely trabecular with no discrete lesions identified. The pascal average 0.5 cm thick. Credit Investigator sections to include the cystic duct margin and full thickness sections are submitted in cassette A1. ([id number]) /MRV 04/02/2023 1230 Local . 01 Pathologist provided ICD-10: K80.50 . 01 CPT . 315190 Specimen Comment: A courtesy copy of this report has been sent to [phone] Performed at: 01 [facility] [address] [place] [address] [address], [place], [place] [id number] MD Rickey Arce MD Phone: [phone]
[2023-04-01] MEDS: SODIUM CHLORIDE 0.9% 1,000 ML 100 ML IV (09:50)
[2023-04-01] MEDS: ACETAMINOPHEN 325 MG TABLET 650 MG PO (09:59)
--- NOTE | 2023-04-01 10:23 | PM.PREOP ---
Pre-operative Note COVID-19 COVID-19 status: Not tested Interval Note History & Physical reviewed/Exam performed by Physician: Yes Changes to H&P: No ASA Class (for procedural sedation): III
--- NOTE | 2023-04-01 10:29 | SUR.OPER ---
Supine on padded OR bed, head on pillow, safety belt at thigh, left arm padded and tucked at side. Right arm secured on padded arm board <90 degrees abduction. Legs uncrossed. Padded footboard in place. Tape over blanket to secure lower legs.
[2023-04-01] MEDS: CEFAZOLIN 2 GM/100 ML PREMIX 100 ML IV (10:50)
[2023-04-01] MEDS: BUPIVACAINE 0.5% (PF) 30 ML, EPINEPHrine 0.15 MG INJ (12:03)
--- NOTE | 2023-04-01 12:20 | PM.OP.1 ---
Operative Date/Time/Diagnoses Date of procedure: 04/01/23 Time of procedure: 12:20 Pre-op diagnosis: Cholelithiasis Post-op diagnosis: same Procedure & Clinicians Procedure: Laparoscopic cholecystectomy Same procedure as scheduled: Yes Surgeon: Joseph Mondragon Anesthesia Type: General Operative Notes Procedure in detail: The patient was given preoperative antibiotics. The patient was brought to the operating room and placed on the table in the supine position. General endotracheal anesthesia was induced. The abdomen was prepped and draped. A time-out was performed. We made a 1 cm infraumbilical incision. We dissected down to the base of the umbilical stalk using cautery. We grasped the umbilical stalk with a Stephon clamp to elevate the abdominal wall. We scored the fascia in the midline with cautery. We pierced the peritoneum with a Peon clamp. The Arian port was placed and the abdomen was insufflated to 15 mmHg. A 5 mm 30 degree laparoscopic was inserted. There was no evidence of any injury from the entry. Next, we placed 5 mm ports in the subxiphoid position and right upper quadrant at the midclavicular line and anterior axillary line. The patient was then positioned in reverse Trendelenburg and the table was tilted to the left. There was a small ventral hernia in the right upper quadrant just inferior to the costal margin with some incarcerated omentum. The omentum was freed from the hernia and allowed to drop back down into the abdomen. No attempt was made to repair the hernia at this time. The gallbladder was grasped at the dome and retracted cephalad. There was a thick rind of fibrotic tissue encasing the gallbladder. We then dissected the cystic structures with a combination of hook cautery and blunt dissection. We obtained a critical view. We placed clips on the cystic duct and artery and divided the cystic duct and artery sharply between the clips. The gallbladder was then dissected off the liver and placed in a specimen retrieval bag. We irrigated the right upper quadrant and all the aspirate returned clear. We then removed the 5 mm ports under direct vision we removed the Arian port. We then injected some local into the fascia and closed the fascia with 2 interrupted 0 Vicryl sutures. The skin incisions were closed with 4-0 Monocryl and Steri-Strips were applied. Band-Aids were applied over the Steri-Strips. EBL: 30 mL Specimen: Gallbladder and contents Post-operative Condition: stable Disposition: PACU
--- NOTE | 2023-04-01 12:33 | SUR.PHASEI ---
Patient reported mid chest pain, a little bit, then fell back asleep. VS stable. Tele: NSR.
[2023-04-01] MEDS: HYDROMORPHONE 1 MG INJ IV ×2 (12:39→12:46)
[2023-04-01] MEDS: OXYCODONE IR 5 MG TABLET PO ×2 (12:49→13:51)
[2023-04-01] MEDS: hydrOXYzine pamoate 25 MG CAPSULE 50 MG PO (12:50)
--- NOTE | 2023-04-01 12:57 | SUR.PHASEI ---
Intermittent desat to upper 80s on room air. IS provided. Verbal instructions given. Patient able to reach 1250mls.
--- NOTE | 2023-04-01 12:58 | SUR.PHASEI ---
Patient denied chest pain but stated his pain was his upper abdomen, close to the lap site.
== END 2023-04-01 14:25 | disposition home or self-care (01) ==
PROVIDERS: PCP Pediatrics; Referring Provider Surgery; Visit Provider Surgery
PROC: 0FT44ZZ Resection of Gallbladder, Percutaneous Endoscopic Approach (ICD-10-PCS; CPT 47562; principal; 2023-04-01 10:15)
DX: K80.10 Calculus of gallbladder with chronic cholecystitis without obstruction (principal)
CPT/HCPCS: 47562; 82962; J0171; J0690; J1100; J1170; J2405; J2704; J3010

== ENCOUNTER → 2023-06-11 07:16 | Outpatient (CLI) | payer MEDICARE, SELFPAY ==
[2022-04-27 14:32] VITALS: BMI 36.0
[2023-06-11 08:23] LABS: Add Manual Diff / Slide Review NO; Basophils Absolute Auto 100 /uL (0-100); Basophils Percent Auto 0.9 % (0-2); Eosinophils Absolute Auto 400 /uL (0-450); Eosinophils Percent Auto 5.7 % (2-4); Hematocrit 38.3 % (41-53); Hemoglobin 12.8 g/dL (13.5-17.5); Lymphocytes Absolute Auto 1600 /uL (1100-4500); Mean Corpuscular HGB Conc 33.4 % (30-36); Mean Corpuscular Hemoglobin 30.2 PG (26-34); Mean Corpuscular Volume 90.4 fL (80-100); Monocytes Absolute Auto 500 /uL (0-900); Monocytes Percent Auto 6.5 % (3-14); Neutrophils Absolute Auto 5000 /uL (1500-7000); Neutrophils Percent Auto 65.9 % (50-75); Platelet Count 287 X10^3/uL (150-400); Red Blood Cell Count 4.23 X10^6/uL (4.5-5.9); Red Cell Distribution Width 13.5 % (11.6-14.8); White Blood Cell Count 7.7 X10^3/uL (4.5-11.0)
[2023-06-11 09:00] LABS: Alanine Aminotransferase 19 IU/L (<50); Albumin Globulin Ratio 1.3 (1.0-2.8); Alkaline Phosphatase 66 U/L (38-126); BUN Creatinine Ratio 15.3 (6-22); Bilirubin Total 0.4 mg/dL (0.2-1.3); Blood Urea Nitrogen 19 mg/dL (9-20); Calcium 9.8 mg/dL (8.4-10.2); Carbon Dioxide 25 mmol/L (22-32); Chloride 104 mmol/L (98-107); Cholesterol 158 mg/dL (140-199); Estimated Glomerular Filt Rate > 60 mL/min (>60); Glucose 114 mg/dL (80-110); HDL Cholesterol 49 mg/dL (40-60); HEMOLYSIS < 15 (0-50); LDL Cholesterol Calculated 82 mg/dL (<100); Potassium 4.6 mmol/L (3.4-5.1); Sodium 138 mmol/L (137-145); Triglycerides 136 mg/dL (35-150)
[2023-06-11 09:05] LABS: Hemoglobin A1C% w Est Avg Glu 5.9 % (4.0-6.0)
[2023-06-11 10:24] LABS: Creatinine Urine Random 129.7 mg/dL
[2023-06-11 10:28] LABS: Microalbumi Creatinin Ratio Ur 16.1 ug/mg CR (<30); Microalbumin Urine Random 2.1 mg/dL (0-1.6)
[2023-06-13 16:12] LABS: Aspartate Aminotransferase 18 IU/L (17-59)
== END ==
PROVIDERS: PCP Family Medicine; Referring Provider Family Medicine; Visit Provider Family Medicine
DX: E11.9 Type 2 diabetes mellitus without complications (principal); E78.2 Mixed hyperlipidemia; E66.01 Morbid (severe) obesity due to excess calories; I10 Essential (primary) hypertension; N18.31 Chronic kidney disease, stage 3a
CPT/HCPCS: 36415; 80053; 80061; 82043; 82570; 83036; 85025

== ENCOUNTER → 2023-06-18 07:28 | Outpatient (CLI) | payer MEDICARE, SELFPAY ==
[2022-04-27 14:32] VITALS: BMI 36.0
[2023-06-18 08:14] LABS: Hematocrit 39.1 % (41-53); Hemoglobin 13.2 g/dL (13.5-17.5)
[2023-06-18 08:33] LABS: Blood Urea Nitrogen 20 mg/dL (9-20); Calcium 10.1 mg/dL (8.4-10.2); Carbon Dioxide 26 mmol/L (22-32); Chloride 105 mmol/L (98-107); Estimated Glomerular Filt Rate > 60 mL/min (>60); Glucose 104 mg/dL (80-110); HEMOLYSIS < 15 (0-50); Potassium 4.8 mmol/L (3.4-5.1); Sodium 139 mmol/L (137-145)
[2023-06-18 10:39] LABS: Protein (Total) Urine Random < 5 mg/dL (0-12); Protein Creatinine Ratio Urine 0.04 GRAM/24H
[2023-06-20 12:36] LABS: Parathyroid Hormone Int 51 pg/mL (15-65)
== END ==
LOC: LAB 07:30
PROVIDERS: PCP Family Medicine; Referring Provider Student in an Organized Health Care Education/Training Program; Visit Provider Student in an Organized Health Care Education/Training Program
DX: N05.9 Unspecified nephritic syndrome with unspecified morphologic changes (principal); D70.9 Neutropenia, unspecified; D63.1 Anemia in chronic kidney disease; R80.9 Proteinuria, unspecified; N25.81 Secondary hyperparathyroidism of renal origin
CPT/HCPCS: 36415; 80048; 82570; 83970; 84156; 85014; 85018

== ENCOUNTER → 2023-09-05 14:49 | Outpatient (CLI) | payer MEDICARE, SELFPAY ==
[2022-04-27 14:32] VITALS: BMI 36.0
[2023-09-05 16:35] LABS: HEMOLYSIS < 15 (0-50); Potassium 4.4 mmol/L (3.4-5.1)
== END ==
LOC: LAB 14:58
PROVIDERS: PCP Family Medicine; Referring Provider Family Medicine; Visit Provider Family Medicine
DX: E11.9 Type 2 diabetes mellitus without complications (principal); N18.31 Chronic kidney disease, stage 3a
CPT/HCPCS: 36415; 83036; 84132

== ENCOUNTER → 2023-10-15 09:00 | Outpatient (CLI) | payer MEDICARE, SELFPAY ==
[2022-04-27 14:32] VITALS: BMI 36.0
[2023-10-15 10:53] LABS: Prostate Specific Antigen 2.59 ng/mL (0.10-4.00)
== END ==
PROVIDERS: PCP Family Medicine; Referring Provider Urology; Visit Provider Urology
DX: Z12.5 Encounter for screening for malignant neoplasm of prostate (principal)
CPT/HCPCS: 36415; 84153